=== PATIENT | female | born 1965 | race Two or more races ===

== ENCOUNTER → 2023-08-10 | Outpatient (CLI) | payer BC | END | disposition home or self-care (01) | LOC: LAB 09:09 | PROVIDERS: ATTEND Internal Medicine | DX: Z12.11 Encounter for screening for malignant neoplasm of colon (principal); Z00.00 Encounter for general adult medical examination without abnormal findings; E78.5 Hyperlipidemia, unspecified | CPT/HCPCS: 82270 ==

== ENCOUNTER 2024-04-19 09:14 | Day surgery (SDC) | payer BC ==
[2024-04-12 14:54] LABS: Basophils # (auto) 0 10 ^3/uL (0-0.2); Basophils % (auto) 0.7 % (0.0-2.0); Eosinophils # (auto) 0.1 10 ^3/uL (0-0.8); Eosinophils % (auto) 1.8 % (0.0-7.0); Hematocrit 43.7 % (36.0-46.0); Hemoglobin 14.4 g/dL (12.2-16.2); Lymphocytes # (auto) 2.2 10 ^3/uL (0.4-5.4); Lymphocytes % (auto) 30.4 % (10.0-50.0); Mean Corpuscular Hgb Conc. 32.8 g/dL (32.0-36.0); Mean Corpuscular Volume 88.3 fL (80.0-100.0); Monocytes # (auto) 0.4 10 ^3/uL (0-1.3); Monocytes % (auto) 5.8 % (0.0-12.0); Neutrophils # (auto) 4.4 10 ^3/uL (1.6-8.6); Neutrophils % (auto) 61.3 % (37.0-80.0); Platelet Count (auto) 227 10^3/uL (140-450); Red Blood Cells 4.95 10^6/uL (4.0-5.20); White Blood Cell 7.3 10^3/uL (4.4-10.8)
[2024-04-12 15:29] LABS: Alanine Aminotransferase 29 U/L (7-40); Albumin 4.7 g/dL (3.2-4.8); Anion Gap 9 (5-15); Aspartate Aminotransferase 20 U/L (13-40); BUN/Creatinine Ratio 21.5 (10.0-20.0); Bilirubin, Total 0.4 mg/dL (0.2-1.0); Blood Urea Nitrogen 17 mg/dL (9-23); Calcium 10.2 mg/dL (8.7-10.4); Carbon Dioxide 25 mmol/L (20-31); Glucose 101 mg/dL (74-106); Sodium 142 mmol/L (136-145); Total Protein 7.1 g/dL (5.7-8.2)
[2024-04-12 15:30] LABS: Alkaline Phosphatase 116 U/L (46-116); Chloride 108 mmol/L (98-107)
[2024-04-12 15:32] LABS: INR 0.97 (0.9-1.15); Partial Thromboplastin Time 25.4 SEC (24.5-34.5); Prothrombin Time 10.3 sec (9.3-11.8)
[~2024-04-19] VITALS: Ht 157.5 cm; Wt 62.6 kg
[~2024-04-19 09:14] MED LIST: LOSA-533 PO
[2024-04-19] MEDS: fentaNYL CITRATE 100 MCG/2 ML VL ONE (10:30)
[2024-04-19] MEDS: diphenhdrAMINE HCL 50 MG/1 ML VL ONE (10:30)
[2024-04-19] MEDS: MIDAZOLAM HCL 5 MG/ML-1ML VIAL ONE (10:30)
[2024-04-19 10:49] VITALS: TEMP 97.3; O2SAT 99
--- NOTE | 2024-04-19 10:54 | DVHOP2 ---
Operative Report DATE OF OPERATION: 04/19/24 PROCEDURE: Colonoscopy with cold biopsy polypectomy. PREOPERATIVE INDICATION: The patient is a 58 -year-old female undergoing colonoscopy for colon cancer screening POSTOPERATIVE DIAGNOSES: 1. There was a 2 mm benign-appearing ascending colon polyp that was seen and removed completely via cold biopsy forceps 2. There were two diminutive 1-2 mm benign-appearing rectal polyps were seen and removed by cold biopsy forceps 3. Trace internal hemorrhoids otherwise normal examination up to the cecum PROCEDURE PERFORMED BY: Elroy Luo M.D. SCOPE: Olympus videocolonoscope. ASA CLASS: 2 PREOPERATIVE MEDICATIONS: Versed 5 mg, Fentanyl 100 mcg, Benadryl 50 mg PROCEDURE IN DETAIL: After obtaining an informed consent, the patient was placed on left lateral decubitus position. She was then sedated with the above medications. A rectal examination was performed that was normal. The colonoscope was then passed through the anus into the rectosigmoid and through the descending, transverse, and ascending colon up to the cecum with visualization of the appendiceal orifice, base of the cecum and the ileocecal valve. The colonoscope was then withdrawn. The distal 5 cm of the terminal ileum were normal Patient had a 2-3 mm benign-appearing ascending colon polyp. This was removed completely via cold biopsy forceps There were no masses or colitis. There was no clear-cut diverticular disease. Patient had mild tortuosity of the colon. In the rectosigmoid the patient had 2-3 benign-appearing diminutive polyps that were seen and removed by cold biopsy forceps. Patient had trace internal hemorrhoids on retroflexion. The patient tolerated the procedure well without difficulty. WITHDRAWAL TIME: 8 minute QUALITY OF THE PREP: [place] Bowel Prep score: 9. COMPLICATIONS : None SPECIMENS: Ascending colon polyp Rectal polyps DISPOSITION: Stable D/C to home PLAN: 1. Repeat colonoscopy base on biopsy result likely in five years 2. Resume GI soft diet advance as tolerated 3. Outpatient follow up with me in 4-6 weeks to review results and discuss further management 4. Increase fluid and fiber intake ELROY LUO MD Apr 19, 2024 10:54
[2024-04-19 11:30] VITALS: BP 133/69; PULSE 76; RESP 20; O2SAT 98
== END 2024-04-19 11:45 | disposition home or self-care (01) ==
LOC: GI 09:14
PROVIDERS: ATTEND Internal Medicine Gastroenterology
DX: Z12.11 Encounter for screening for malignant neoplasm of colon (principal); K62.1 Rectal polyp; K64.8 Other hemorrhoids; D12.2 Benign neoplasm of ascending colon; I10 Essential (primary) hypertension; Z90.710 Acquired absence of both cervix and uterus; Z98.890 Other specified postprocedural states; Z79.899 Other long term (current) drug therapy
CPT/HCPCS: 36415; 45380; 80053; 85025; 85610; 85730; 88305; J1200; J2250; J3010; J7030

== ENCOUNTER → 2025-02-03 | Outpatient (CLI) | payer BC ==
[2025-02-03 16:09] LABS: Alanine Aminotransferase 33 U/L (7-40); Albumin 4.5 g/dL (3.2-4.8); Alkaline Phosphatase 115 U/L (46-116); Anion Gap 11 (5-15); BUN/Creatinine Ratio 14.0 (10.0-20.0); Blood Urea Nitrogen 12 mg/dL (9-23); Calcium 9.2 mg/dL (8.7-10.4); Carbon Dioxide 25 mmol/L (20-31); Potassium 3.7 mmol/L (3.5-5.1); Sodium 144 mmol/L (136-145); Total Protein 6.9 g/dL (5.7-8.2)
[2025-02-03 16:10] LABS: Bilirubin, Total 0.5 mg/dL (0.2-1.0)
[2025-02-03 16:14] LABS: Chloride 108 mmol/L (98-107); Glucose 106 mg/dL (74-106)
== END | disposition home or self-care (01) ==
LOC: LAB 14:40
PROVIDERS: ATTEND Internal Medicine
DX: R07.9 Chest pain, unspecified (principal)
CPT/HCPCS: 36415; 80053; 85379